=== PATIENT | female | born 1955 | race Native Hawaiian/Other Pacific Islander ===

== ENCOUNTER 2020-03-22 23:55 | Emergency (ER) | payer MEDICARE, OTHER ==
[~2020-03-22] VITALS: Ht 165.1 cm; Wt 90.7 kg
--- NOTE | 2020-03-23 00:05 | NUR ---
YVONNE Nelson FROM [facility] FOR EVALUATION OF AN EPISODE OF APNEA FOR 30 SECONDS. PT ON TRACH, NON VENTILATOR. pt to bed 8, awake, responsive, placed on monitor, vss, nad noted. pending er provider jaison
[2020-03-23 00:32] LABS: BASOPHILS % (AUTO) 0.5 % (0.0-2.0); EOSINOPHILS % (AUTO) 8.4 % (0.0-6.0); HEMATOCRIT 32 % (33-45); HEMOGLOBIN 10.4 g/dL (11.5-14.8); MEAN CORPUSCULAR HGB CONC 33 g/dl (31.0-36.0); MEAN CORPUSCULAR VOLUME 98 fL (82-100); MONOCYTES % (AUTO) 11.2 % (2.0-12.0); NEUTROPHILS % (AUTO) 56.9 % (43.0-81.0); PLATELET COUNT (AUTO) 497 /CMM (150-450); RED BLOOD CELL COUNT(AUTO) 3.23 MIL/uL (4.0-5.2); WHITE BLOOD COUNT (AUTO) 8.8 K/uL (4.3-11.0)
[2020-03-23 00:40] LABS: CALCIUM, SERUM 9.8 mg/dL (8.5-10.1); CARBON DIOXIDE 24 mmol/L (21-32); CHLORIDE 108 mmol/L (98-107); CREATININE 0.8 mg/dL (0.6-1.3); GLUCOSE 153 mg/dL (74-106); POTASSIUM 4.1 mmol/L (3.5-5.1); SODIUM SERUM 145 mmol/L (136-145); UREA NITROGEN, BLOOD 29 mg/dL (7-18)
--- NOTE | 2020-03-23 02:26 | NUR ---
[facility] ETA 60-90 MIN
--- NOTE | 2020-03-23 04:48 | NUR ---
CALLED [facility]; REPORT GIVEN TO LIANE GRECO.
[2020-03-23 05:04] VITALS: BP 138/58
== END 2020-03-23 05:05 ==
LOC: ER 03-23
DX: R09.02 Hypoxemia (principal); G40.909 Epilepsy, unspecified, not intractable, without status epilepticus; E03.9 Hypothyroidism, unspecified; Z98.890 Other specified postprocedural states
CPT/HCPCS: 36415; 71045-TC; 80048-TC; 84484-TC; 85025-TC

== ENCOUNTER 2020-06-16 02:21 | Emergency (ER) | payer OTHER ==
[~2020-06-16] VITALS: Ht 170.2 cm; Wt 83.9 kg
[2020-06-16 02:22] VITALS: BP 108/97
--- NOTE | 2020-06-16 02:22 | NUR ---
JASIEL FROM [facility] FOR C/O HYPERGLYCEMIA. BS:400 ON THE FIELD; PT TO BED 8, PLACED ON MONITOR. VENT/TRACHE DEPENDENT. +GT IN PLACE. RT AT BEDSIDE. REPORT REC'D FROM RA. AWAITING ER PROVIDER EVAL AT THIS TIME
--- NOTE | 2020-06-16 02:49 | NUR ---
RT CALLED TO PT BEDSIDE FOR CODE BLUE. PT VENTILATED ON VENT THROUGHOUT CODE BLUE DUE TO COVID19 PRECAUTIONS. CPR ALTERNATED WITH ER STAFF.
--- NOTE | 2020-06-16 02:49 | NUR ---
CODE BLUE STARTED: SEE CODE BLUE SHEET
[2020-06-16 02:50] LABS: BASOPHILS % (AUTO) 0.2 % (0.0-2.0); HEMATOCRIT 36 % (33-45); LYMPHOCYTES # (AUTO) 4.3 /CMM (0.8-4.8); LYMPHOCYTES % (AUTO) 26.2 % (20.0-44.0); MEAN CORPUSCULAR HGB CONC 30 g/dl (31.0-36.0); MEAN CORPUSCULAR VOLUME 107 fL (82-100); MONOCYTES # (AUTO) 2.3 /CMM (0.1-1.30); MONOCYTES % (AUTO) 14.4 % (2.0-12.0); NEUTROPHILS # (AUTO) 9.6 /CMM (1.8-8.9); NEUTROPHILS % (AUTO) 59.2 % (43.0-81.0); PLATELET COUNT (AUTO) 256 /CMM (150-450); WHITE BLOOD COUNT (AUTO) 16.2 K/uL (4.3-11.0)
[2020-06-16] MEDS ORDERED: EPINEPHRINE (1:10,000) SYRINGE 1 MG/10 ML DISP.SYRIN ONE ×3 (03:00→03:27)
[2020-06-16] MEDS ORDERED: SODIUM BICARBONATE SYR 50 MEQ/50 ML DISP.SYRIN ONE (03:00)
[2020-06-16] MEDS ORDERED: CALCIUM CHLORIDE 1,000 MG/10 ML DISP.SYRIN ONE (03:00)
[2020-06-16] MEDS ORDERED: IV NS 0.9% 1,000 ML BAG IV ONE (03:00)
[2020-06-16 03:02] LABS: ALBUMIN 1.7 g/dL (3.4-5.0); BILIRUBIN,DIRECT 0.3 mg/dL (0.0-0.2); BILIRUBIN,TOTAL 0.4 mg/dL (0.2-1.0); CALCIUM, SERUM 8.8 mg/dL (8.5-10.1); CREATININE 2.1 mg/dL (0.6-1.3); POTASSIUM 4.5 mmol/L (3.5-5.1)
--- NOTE | 2020-06-16 03:16 | NUR ---
ATTEMPTED TO CALL PT MYRANDA LOWE, UNABLE TO LEAVE MESSAGES TO CALL THE HOSPITAL DUE TO MAILBOX IS FULL.
--- NOTE | 2020-06-16 03:21 | NUR ---
RT CALLED TO PT BEDSIDE FOR CODE BLUE. PT REMAINED ON VENT THROUGHOUT CODE BLUE DUE TO COVID19 PRECAUTIONS. CPR ALTERNATED WITH ER STAFF
--- NOTE | 2020-06-16 03:21 | NUR ---
CODE BLUE STARTED: SEE 2ND CODE BLUE SHEET
--- NOTE | 2020-06-16 03:36 | NUR ---
ATTEMPTED TO CALL PT SON SOFIA WHITMORE UNABLE TO LEAVE MESSAGES TO CALL THE HOSPITAL DUE TO MAILBOX IS FULL.
--- NOTE | 2020-06-16 03:38 | NUR ---
CALLING [email or web address] FOR REPORT
--- NOTE | 2020-06-16 03:54 | NUR ---
CALLED DR. ARTEMIO HERNANDEZ; PT'S PMD. WELL PULLER= DR. VENEGAS PAGED AT THIS TIME
--- NOTE | 2020-06-16 03:58 | NUR ---
DR VENEGAS CALLED BACK; AWARE OF PT'S . WILL NOTIFY PMD IN AM.
--- NOTE | 2020-06-16 04:02 | NUR ---
SPOKE TO JAN AT [facility] W/ . AWAITING THEIR CALL BACK
--- NOTE | 2020-06-16 05:32 | NUR ---
[facility] CALLED BACK; ASKING MORE INFO -IF FAMILY NOTIFIED AND SUCH. SPOKE TO JAN
--- NOTE | 2020-06-16 05:32 | NUR ---
BODY TRANSPORTED TO [facility]
--- NOTE | 2020-06-16 15:37 | NUR ---
11:15am This SW per [employer] LIANE otero contacted Radha (social work nurse) at [address], [place] [address] to follow up on this patient as they tried to contact family. Patient in the ED at 3am. Per Radha at [facility], patients son Vega is difficult to get a hold of, but she will try him at to alert patients son to answer his phone as this SW will be calling him.
--- NOTE | 2020-06-16 15:38 | NUR ---
11:20am This SW was able to contact this patients son Vega . This SW provided Vega with nursing supervisors direct line for more information regarding the patient.
--- NOTE | 2020-06-16 15:38 | NUR ---
1:00pm This SW received a voicemail from Brain, patients ex . This SW returned his call . Asher was under the impression this patient was at [facility]. This SW informed Asher that the patient is at this facility. This SW provided nursing supervisors direct line for more information regarding the patient. Patients ex- expressed knowledge that patient had , however asked this SW for additional details. This SW informed Asher that this SW could not provide details on how the patient as this SW is not a medical professional. Asher understood this and was understanding. This SW to remain available for all needs regarding this patient.
== END 2020-06-16 05:34 | disposition expired ==
LOC: ER 02:23
DX: I46.9 Cardiac arrest, cause unspecified (principal); R94.31 Abnormal electrocardiogram [ECG] [EKG]; G40.909 Epilepsy, unspecified, not intractable, without status epilepticus; G93.40 Encephalopathy, unspecified; I95.9 Hypotension, unspecified; I50.9 Heart failure, unspecified; F31.9 Bipolar disorder, unspecified; E03.9 Hypothyroidism, unspecified; D64.9 Anemia, unspecified; Z98.890 Other specified postprocedural states
CPT/HCPCS: 36415; 71045; 80048; 80076; 82010; 82962; 83690; 85025; 92950; 93005; 99291; J0171 ×2; J3490 ×2; J7030